=== PATIENT | female | born 1945 | race Caucasian/White ===

== ENCOUNTER 2022-11-27 09:45 | Observation (INO) ==
--- NOTE | 2022-11-27 10:37 | History & Physical Report ---
Date of Service November 27, 2022 Assessment & Plan (1) GREGORIO (dyspnea on exertion): Plan: Exertional Dyspnea. Hx Heart failure reduced ejection fraction, history bioprosthetic AVR CXR: 1. Trace bilateral pleural effusions. No evidence for pulmonary edema.2. No consolidation to suggest pneumonia. - 11/25/22: At [facility]: CXR normal. Elevated D-dimer: 1.21. High-sensitivity troponin 16. proBNP: 527. CTAPE protocol: No acute pulmonary emboli, c ardiomegaly with mild interstitial edema and small left pleural effusion. CTA Images being pushed/requested for in-house review - Patient has had intermittent chest pain in her sternum along the scar, this has occurred intermittently both at rest and with exertion but is not associated with exertion and is not correlated to her shortness of breath. She does not have this pain on admission. Admitting EKG: Sinus, nonspecific ST change. Compared to prior similar, previously paced. Metoprolol temporarily held for systolic pressure 100 High-sensitivity troponin pending Echo: EF 50%, prosthetic AV valve well-seated with normal gradient. Improved LV SF compared to prior study. No regional wall motion abnormalities High-sensitivity troponin is normal, 5.7 BNP is normal, 97 Cardiology consulted - Unclear source of dyspnea sx. No wheezing appreciated. No obvious overload. Graft well seated. HR appropriate. PFT/DLCO pending - ?Reflux dyspnea --> PPI ordered History of paroxysmal atrial fibrillation Apixaban 5 mg p.o. twice daily. Continued. Patient did not take morning dose, ordered EKG sinus on admission COPD Recently switched from Anoro to fluticasone Continue fluticasone No wheezing on admitting exam, good air movement No evidence of acute exacerbation Patient at bedside denied awareness of this diagnosis, reports she was not sure what her inhalers were for. Former tobacco use in remission No PFTs available for review Third-degree heart block with dual-chamber pacer EKG as noted above Pacer in place Interrogation ordered for review History of transitional cell carcinoma No recent symptoms On yearly surveillance cystoscopy, follows with [facility] Anxiety Continue BuSpar CKD Baseline creatinine ranging from 0.91.5 in preceding 2 months Last 1.14, 1.32 today Trend daily We will continue Entresto/spironolactone, if rising creatinine hold DVT prophylaxis: Anticoagulated on DOAC Diet: Heart healthy CODE STATUS: Full code Disposition: Medical telemetry (2) HFrEF (heart failure with reduced ejection fraction): (3) COPD (chronic obstructive pulmonary disease): (4) Hypertension: (5) Status post placement of cardiac pacemaker: (6) Bladder cancer: (7) COPD (chronic obstructive pulmonary disease): (8) S/P AVR: (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 Due to severe exertional dyspnea she was referred to the emergency department for inpatient evaluation. Susan reports she has been having shortness of breath and difficulty breathing. Noticed shortness of breath 'from day one right after the surgery.' Has good days and bad days, notes several symptom free days since then as well. Last time she was dyspnea free was last Wednesday (6 days ago). Was feeling 'fine that Wednesday, went to bed feeling fine, woke up Wednesday morning for cardiac rehab and was really having trouble breathing, but went anyway and couldn't do much while I was there.' Was recommended for ER evaluation then, but as she had similar sx before intermittently wanted to watch and wait. This past week layed on the couch and went to bed, but continued to feel poor all week. Dyspnea with any exertion and while trying to engage with rehab. Weds went back to rehab and they [place] [facility] based on dyspnea. D-dimer elevated, CTA with no evidence of PE. Initially was told they would keep her for a few days, tests looked OK and d/rashid back home. Per pt did not recieve any lasix/fluid medicine. no rales/wheezes no leg edema Anoro discontinued 11/15/2022, replaced with Flovent. Pt denies hx of asthma/COPD, has not had PFTs No chest pain at current. Intermittent chest pain not associated with SoB/exertion. OCcurs at the lower part of her scar over the sternum. Hurts at her AVR scar. Does not notice a difference with palpation. Patient was seen at [facility] 11/25/2022 for shortness of breath, exertional dyspnea, and chest pressure worsening since her valve replacement. At that visit : EKG without acute ischemic changes CXR normal Elevated D-dimer: 1.21 Creatinine 1.3 High-sensitivity troponin 16 proBNP: 527 CTAPE protocol: No acute pulmonary emboli, cardiomegaly with mild interstitial edema and small left pleural effusion. - Images being pushed/requested for in-house review Med Review w Pt in Room: Takes Eliquis. - Last medicine last night. Did not take morning meds, usually take at 9am. - As needed Albuterol. - Buspar - Fluticasone inhaler daily - Valsartan - Sprionolactone - MTP - HYdroxyzine - Gabapentin 100mg PO HS, takes for sleep, no neuropathy bu thas had a 'sensative numb feeling' which improves at night with gabapentin. Does not take 3x per day 'its too much for me.' - Lasix 40mg daily was decreased to 20mg 'a few weeks ago.' Medical History: Reviewed Medications: Reviewed Surgical History: Reviewed Allergies: Reviewed Social History: Former tobacco use without current use, no alcohol use Code Status:Full Allergies Allergy/AdvReac Type Severity Reaction Status Date / Time clindamycin Allergy Severe Hives Verified 11/16/22 11:55 cocoa butter Allergy Severe HIVES Unverified 11/16/22 11:55 acetaminophen Allergy Unknown N/V Verified 11/16/22 11:55 codeine Allergy Unknown N/V Verified 11/16/22 11:55 meperidine Allergy Unknown N/V Verified 11/16/22 11:55 morphine Allergy Unknown "OUT OF Verified 11/16/22 11:55 BODY EXPERIENCES" oxycodone Allergy Unknown N/V Verified 11/16/22 11:55 Penicillins Allergy Unknown HIVES Verified 11/16/22 11:55 Sulfa (Sulfonamide Allergy Unknown HIVES Verified 11/16/22 11:55 Antibiotics) hydrocodone AdvReac Severe NAUSEA Unverified 11/16/22 11:55 lisinopril AdvReac Mild Cough Unverified 11/16/22 11:55 Home Medications Medication Instructions Recorded Confirmed Type acetaminophen 500 mg tablet 1,000 mg PO Q8H PRN Pain 08/07/22 11/27/22 History albuterol sulfate 90 mcg/actuation 2 inh inhalation Q6H PRN Shortness 08/07/22 11/27/22 History breath activated powder inhaler Of Breath sacubitril 24 mg-valsartan 26 mg 1 tab PO BID #60 tabs 09/18/22 11/27/22 Rx tablet (Entresto) buspirone 5 mg tablet 5 mg PO DAILY 09/29/22 11/27/22 History hydroxyzine HCl 10 mg tablet 10 mg PO TID PRN itching #90 tabs 10/05/22 11/27/22 Rx apixaban 5 mg tablet (Eliquis) 5 mg PO BID #180 tabs 10/06/22 11/27/22 Rx gabapentin 100 mg capsule 100 mg PO HS 10/27/22 11/27/22 History metoprolol succinate 100 mg 100 mg PO DAILY #90 tabs 11/02/22 11/27/22 Rx tablet,extended release 24 hr furosemide 40 mg tablet 20 mg PO DAILY #45 tabs 11/06/22 11/27/22 Rx fluticasone propionate 110 2 puff inhalation BID #12 grams 11/16/22 11/27/22 Rx mcg/actuation HFA aerosol inhaler (Flovent HFA) nitroglycerin 0.4 mg sublingual 0.4 mg sublingual Q5M PRN chest 11/16/22 11/27/22 Rx tablet (Nitrostat) pain #10 tabs spironolactone 25 mg tablet 25 mg PO DAILY #30 tabs 11/20/22 11/27/22 Rx Past Med/Surg History Medical History Aortic valve insufficiency Basal cell carcinoma of skin of face Bladder cancer Breast cancer Cardiomyopathy Cervical cancer Clostridium difficile colitis Colon cancer Complete heart block Hypertension Ovarian cancer Postoperative atrial fibrillation TIA (transient ischemic attack) Surgical History (Updated 09/01/22 @ 10:25 by Justice Light MD) H/O heart valve replacement with bioprosthetic valve 07/20/2022 [facility] [place] History of appendectomy S/P carpal tunnel release Status post placement of cardiac pacemaker (07/26/22) Family History (Updated 08/17/22 @ 12:32 by Jorge Luis Liu MD) Father Liver cancer alcoholism Mother Cancer of kidney Uncle Diabetes Other Cancer Heart disease Denies family history of Deep vein thrombosis Dyslipidemia Kidney disease Breast cancer Pulmonary embolism Hypertension Social History (Updated 08/17/22 @ 12:36 by Jorge Luis Liu MD) Smoking Status: Former smoker Tobacco Type: Cigarettes Age Started Using Tobacco: 16; Age Quit Using Tobacco: 76; packs per day: 1; Second Hand Exposure: No; Hx Alcohol Use: No Hx Substance Use: No Preferred Language: Japanese Communication Ability: Effective Vulnerability Assessment Analyst Required: No Beliefs That Will Affect Care: None Current Living Situation: Spouse Feels Safe at Home: Yes Assistive Devices: Denture - Upper and Denture - Lower Review of Systems Review of Systems: All systems reviewed & are unremarkable except as noted in HPI & below Physical Exam Physical Exam: General: A&Ox3. NAD. Cooperative. HEENT: Atraumatic, normocephalic.Vision/hearing intact. Pupils equal and reactive to light Pulm: CTAB A&P. -wheezes, -rales, -rhonchi. Symmetrical chest rise. No increased work of breathing. No respiratory distress. Cardiac: RRR, +soft SM. Radial pulses intact and symmetrical. Abdominal: Nontender, nondistended, soft. BS present. Ext: Warm, Dry. Distal extremity strength intact. Sensation to soft touch in hands and feet intact. Results & Data Results & Data ([facility]) Vital Signs (Past 12 Hours) Vital Signs Temp Pulse Resp BP Pulse Ox O2 Del Method 11/27/22 09:55 36.4 C L 77 28 H 107/51 L 99 Room Air PG Care Time/CCT Total # of Minutes Spent Total Time Spent with Patient: Total time spent is greater than 50% in coordination of care (as documented) at patient's floor/unit and/or counseling patient: Coding Level of Care Code 29552 INT INP/OBS CARE 3/75MIN Diagnoses GREGORIO (dyspnea on exertion) R06.09 HFrEF (heart failure with reduced ejection fraction) I50.20 COPD (chronic obstructive pulmonary disease) J44.9 Hypertension I10 Status post placement of cardiac pacemaker Z95.0 Bladder cancer C67.9 S/P AVR Z95.2 Primary transitional cell carcinoma of bladder C67.9
--- NOTE | 2022-11-27 11:55 | Electrocardiogram Report ---
Test Reason : Blood Pressure : / mmHG Vent. Rate : 068 BPM Atrial Rate : 068 BPM P-R Int : 156 ms QRS Dur : 108 ms QT Int : 438 ms P-R-T Axes : 074 -09 073 degrees QTc Int : 465 ms Poor data quality, interpretation may be adversely affected Normal sinus rhythm Incomplete right bundle branch block Abnormal ECG When compared with ECG of 08-DEC-2019 13:15, Incomplete right bundle branch block is now Present Confirmed by Buck Martins ([id number]) on 11/27/2022 11:55:26 AM Referred By: Confirmed By:Buck Martins
--- NOTE | 2022-11-27 12:09 | XRay Report ---
XR chest 2V PA/lateral CLINICAL HISTORY: hypoxia/[place] COMPARISON STUDY: Chest CT October 12, 2019. Chest radiograph June 20, 2007. FINDINGS: Dual lead right subclavian pacer is in place. Status post median sternotomy. Possible valve prosthesis. Lung volumes are normal. Lungs are clear. There is no pneumothorax. There are trace bila teral pleural effusions. Cardiac size is normal. Mediastinal contours are normal. There is no evidenc e for pulmonary edema. IMPRESSION: 1. Trace bilateral pleural effusions. No evidence for pulmonary edema. 2. No consolidation to suggest pneumonia. ACT 112: Negative or not required by law. Electronically signed by: Chuck Rendon M.D. 11/27/2022 12:07 PM
[2022-11-27 12:26] LABS: Basophils # (auto) 0.05 K/uL (0-0.2); Basophils % (auto) 0.6 %; Eosinophils # (auto) 0.08 K/uL (0-0.50); Eosinophils % (auto) 0.9 %; Hematocrit (blood only) 40.2 % (37.0-47.0); Hemoglobin 13.2 g/dl (12.0-16.0); Immature Granulocytes # (auto) 0.02 K/uL (0.01-0.20); Immature Granulocytes % (auto) 0.2 %; Lymphocytes # (auto) 1.79 K/uL (1.2-3.4); Mean Corpuscular Hemoglobin 29.5 pg (25.0-34.0); Mean Corpuscular Hgb Conc 32.8 g/dL (32.0-36.0); Mean Corpuscular Volume 89.9 fL (80.0-100.0); Mean Platelet Volume 10.3 fL (9.4-12.4); Monocytes # (auto) 0.68 K/uL (0.11-0.59); Neutrophils # (auto) 5.89 K/uL (1.40-6.50); Neutrophils % (auto) 69.3 %; Platelet Count 265 K/uL (130-400); RDW Standard Deviation 49.5 fL (36.4-46.3); Red Blood Count 4.47 M/uL (4.20-5.40); White Blood Count 8.51 K/ul (4.8-10.8)
[2022-11-27] MEDS ORDERED: METOPROLOL SUCC 50MG EXT REL TAB PO STA (12:28)
[2022-11-27] MEDS ORDERED: VALSARTAN/SACUBITRIL 26/24MG TAB PO ONE (12:30)
[2022-11-27] MEDS ORDERED: APIXABAN 5 MG TABLET PO ONE (12:30)
[2022-11-27 12:37] LABS: Albumin Globulin Ratio 1.2 (0.9-2); BUN Creatinine Ratio 18.9 (10-20); Bilirubin,Total 0.5 mg/dl (0.2-1.0); Calcium 9.7 mg/dl (8.5-10.1); Est GFR (African American) 45.3 ml/min; Est GFR (Non-African American) 39.1 ml/min; Globulin 3.4 gm/dl (2.5-4.0); Magnesium 2.3 mg/dl (1.7-2.4); Phosphorus 3.5 mg/dl (2.5-4.9); Potassium 4.4 mmol/L (3.5-5.1); Total Protein 7.4 gm/dl (6.0-8.3)
[2022-11-27 12:41] LABS: Troponin I High Sensitivity 5.7 pg/ml (0-14)
--- NOTE | 2022-11-27 13:53 | XCELERA ---
[id number] \\[id number]
[2022-11-27 17:11] LABS: Base Excess ABG 0.4 mEq/L (-9-1.8); HCO3 ABG 23 mmol/L (19-24); Oxygen Saturation ABG 99.4 % (90-95); PCO2 ABG 30 mmHg (35-46); PO2 ABG 99 mmHg (80-95); pH ABG 7.49 (7.35-7.45)
[2022-11-27 17:12] LABS: Allen Test POS (Pos)
--- NOTE | 2022-11-27 17:26 | Cardiology Consultation ---
Date of Consultation November 27, 2022 History of Present Illness Requesting Physician: Dariel Roblero Attending Physician: Dariel Roblero Allergies Allergy/AdvReac Type Severity Reaction Status Date / Time clindamycin Allergy Severe Hives Verified 11/16/22 11:55 cocoa butter Allergy Severe HIVES Unverified 11/16/22 11:55 acetaminophen Allergy Unknown N/V Verified 11/16/22 11:55 codeine Allergy Unknown N/V Verified 11/16/22 11:55 meperidine Allergy Unknown N/V Verified 11/16/22 11:55 morphine Allergy Unknown "OUT OF Verified 11/16/22 11:55 BODY EXPERIENCES" oxycodone Allergy Unknown N/V Verified 11/16/22 11:55 Penicillins Allergy Unknown HIVES Verified 11/16/22 11:55 Sulfa (Sulfonamide Allergy Unknown HIVES Verified 11/16/22 11:55 Antibiotics) hydrocodone AdvReac Severe NAUSEA Unverified 11/16/22 11:55 lisinopril AdvReac Mild Cough Unverified 11/16/22 11:55 Home Medications Medication Instructions Recorded Confirmed Type acetaminophen 500 mg tablet 1,000 mg PO Q8H PRN Pain 08/07/22 11/27/22 History albuterol sulfate 90 mcg/actuation 2 inh inhalation Q6H PRN Shortness 08/07/22 11/27/22 History breath activated powder inhaler Of Breath sacubitril 24 mg-valsartan 26 mg 1 tab PO BID #60 tabs 09/18/22 11/27/22 Rx tablet (Entresto) buspirone 5 mg tablet 5 mg PO DAILY 09/29/22 11/27/22 History hydroxyzine HCl 10 mg tablet 10 mg PO TID PRN itching #90 tabs 10/05/22 11/27/22 Rx apixaban 5 mg tablet (Eliquis) 5 mg PO BID #180 tabs 10/06/22 11/27/22 Rx gabapentin 100 mg capsule 100 mg PO HS 10/27/22 11/27/22 History metoprolol succinate 100 mg 100 mg PO DAILY #90 tabs 11/02/22 11/27/22 Rx tablet,extended release 24 hr furosemide 40 mg tablet 20 mg PO DAILY #45 tabs 11/06/22 11/27/22 Rx fluticasone propionate 110 2 puff inhalation BID #12 grams 11/16/22 11/27/22 Rx mcg/actuation HFA aerosol inhaler (Flovent HFA) nitroglycerin 0.4 mg sublingual 0.4 mg sublingual Q5M PRN chest 11/16/22 11/27/22 Rx tablet (Nitrostat) pain #10 tabs spironolactone 25 mg tablet 25 mg PO DAILY #30 tabs 11/20/22 11/27/22 Rx Patient History Medical History Aortic valve insufficiency Basal cell carcinoma of skin of face Bladder cancer Breast cancer Cardiomyopathy Cervical cancer Clostridium difficile colitis Colon cancer Complete heart block Hypertension Ovarian cancer Postoperative atrial fibrillation TIA (transient ischemic attack) Surgical History (Updated 09/01/22 @ 10:25 by Justice Light MD) H/O heart valve replacement with bioprosthetic valve 07/20/2022 [facility] [place] History of appendectomy S/P carpal tunnel release Status post placement of cardiac pacemaker (07/26/22) Family History (Updated 08/17/22 @ 12:32 by Jorge Luis Liu MD) Father Liver cancer alcoholism Mother Cancer of kidney Uncle Diabetes Other Cancer Heart disease Denies family history of Deep vein thrombosis Dyslipidemia Kidney disease Breast cancer Pulmonary embolism Hypertension Social History (Updated 08/17/22 @ 12:36 by Jorge Luis Liu MD) Smoking Status: Former smoker Tobacco Type: Cigarettes Age Started Using Tobacco: 16; Age Quit Using Tobacco: 76; packs per day: 1; Second Hand Exposure: No; Hx Alcohol Use: No Hx Substance Use: No Preferred Language: Cook Islander Communication Ability: Effective Paramedic Required: No Beliefs That Will Affect Care: None Current Living Situation: Spouse Feels Safe at Home: Yes Assistive Devices: Denture - Upper and Denture - Lower Results & Data ([facility]) Vital Signs (Past 12 Hours) Vital Signs Temp Pulse Pulse Resp BP BP Pulse Ox 11/27/22 12:56 66 14 100/53 L 98 11/27/22 11:00 77 25 H 123/59 L 99 11/27/22 10:38 64 11/27/22 09:55 36.4 C L 77 28 H 107/51 L 99 O2 Del Method 11/27/22 12:56 Room Air 11/27/22 11:00 Room Air 11/27/22 10:38 11/27/22 09:55 Room Air PG Care Time/CCT Total # of Minutes Spent Total Time Spent with Patient: Total time spent is greater than 50% in coordination of care (as documented) at patient's floor/unit and/or counseling patient: Coding Diagnoses
[2022-11-27] MEDS ORDERED: hydrOXYzine HCl 10 MG TAB PO PRN (18:18)
[2022-11-27] MEDS ORDERED: NITROGLYCERIN SL 0.4 MG/TAB TAB SL PRN (18:18)
[2022-11-27] MEDS ORDERED: ACETAMINOPHEN 500 MG TAB PO PRN (18:18)
[2022-11-27] MEDS: ALBUT/IPRATROP 3MG/0.5MG NEB 3 ML VIAL NEB SCH ×3 (19:24→23:00)
[2022-11-27] MEDS: GABAPENTIN 100 MG CAP PO SCH (20:38)
[2022-11-27] MEDS: VALSARTAN/SACUBITRIL 26/24MG TAB PO SCH (20:38)
[2022-11-27] MEDS: APIXABAN 5 MG TABLET PO SCH (21:02)
[2022-11-28] MEDS: ALBUT/IPRATROP 3MG/0.5MG NEB 3 ML VIAL NEB SCH ×5 (04:01→19:06)
[2022-11-28 06:57] LABS: Basophils # (auto) 0.06 K/uL (0-0.2); Basophils % (auto) 0.9 %; Eosinophils # (auto) 0.08 K/uL (0-0.50); Eosinophils % (auto) 1.2 %; Hematocrit (blood only) 34.9 % (37.0-47.0); Hemoglobin 11.7 g/dl (12.0-16.0); Immature Granulocytes # (auto) 0.03 K/uL (0.01-0.20); Immature Granulocytes % (auto) 0.4 %; Lymphocytes # (auto) 1.24 K/uL (1.2-3.4); Lymphocytes % (auto) 18.3 %; Mean Corpuscular Hemoglobin 29.3 pg (25.0-34.0); Mean Corpuscular Hgb Conc 33.5 g/dL (32.0-36.0); Mean Corpuscular Volume 87.3 fL (80.0-100.0); Mean Platelet Volume 9.7 fL (9.4-12.4); Monocytes # (auto) 0.58 K/uL (0.11-0.59); Monocytes % (auto) 8.5 %; Neutrophils % (auto) 70.7 %; Platelet Count 255 K/uL (130-400); RDW Coefficient of Variation 14.9 % (11.5-14.5); RDW Standard Deviation 48.1 fL (36.4-46.3); White Blood Count 6.79 K/ul (4.8-10.8)
[2022-11-28 08:22] LABS: Potassium 4.3 mmol/L (3.5-5.1)
[2022-11-28 08:28] LABS: BUN Creatinine Ratio 20.9 (10-20); Creatinine Clr Calc Pharmacy 34.4 ml/min; Est GFR (African American) 53.5 ml/min; Est GFR (Non-African American) 46.2 ml/min
[2022-11-28] MEDS: busPIRone 5 MG TAB PO SCH (09:15)
[2022-11-28] MEDS: APIXABAN 5 MG TABLET PO SCH ×2 (09:15→21:57)
[2022-11-28] MEDS: FLUTICASONE FUROATE 200MCG 14 PUFFS/INHALER INH SCH (09:15)
[2022-11-28] MEDS: SPIRONOLACTONE 25 MG TAB PO SCH (09:15)
[2022-11-28] MEDS: PANTOprazole 40 MG TAB PO SCH (09:16)
[2022-11-28] MEDS: VALSARTAN/SACUBITRIL 26/24MG TAB PO SCH (09:17)
[2022-11-28] MEDS: METOPROLOL SUCC 25MG EXT REL TAB PO SCH (10:16)
--- NOTE | 2022-11-28 12:09 | Cardiology Consultation ---
Date of Consultation November 28, 2022 Assessment & Plan (1) Orthostatic hypotension: (2) History of aortic valve replacement with bioprosthetic valve: (3) Cardiomyopathy: (4) COPD (chronic obstructive pulmonary disease): (5) Paroxysmal atrial fibrillation: Plan Complex patient with conflicting data in the face of apparently declining left ventricular systolic function prompted aggressive intervention with diuresis and vasoactive regimen. Fortunately, her systolic function has greatly improved and it will be much less critical to aggressively afterload reduce. Continue to hold Entresto for now, once her BP recovers would consider restarting this to preserve her improved LV function. In the face of orthostasis, will markedly reduce metoprolol dosing, rather than her usual 100 mg tablet would administer metoprolol succinate 25 mg today, reassess hemodynamics tomorrow to decide on further dosing. Also, she appears euvolemic currently, would continue to hold her diuretic and place her on a weight-based regimen (if she gains more than 2 pounds in a day or more than 5 pounds in a week she could take a dose of furosemide 40 mg). She can eat a low-salt diet and would recommend ambulation later today to ensure she is not having any orthostatic symptoms, dyspnea on exertion, or other ongoing concerns. She was very pleased to hear that her heart function had dramatically improved. Further recommendations based upon clinical course overnight and hemodynamics tomorrow. History of Present Illness Reason for Consultation: Dyspnea exertion/AVR Requesting Physician: Rosie Hines MD Attending Physician: Rosie Hinse MD History of Present Illness 77-year-old woman status post bioprosthetic AVR (June 2022) for severe aortic regurgitation complicated by complete heart block (dual-chamber pacemaker June 2022), paroxysmal atrial fibrillation (apixaban), who was noted to have moderate and then severe left ventricular systolic function postoperatively (2 echocardiograms August 2022) with HFrEF requiring diuretics, seen yesterday by Dr. Light for fatigue and dyspnea, admitted for further evaluation. There was conflicting evidence for volume overload/volume depletion (see Dr. Light's note from 11/27/2022), her vasoactive medications were held and she was followed closely overnight. Fortunately, she had an uneventful night and feels much better this morning, she has not yet received any diuretic or any of her vasoactive medications. Rhythm was unremarkable (sinus in the 80-90 bpm range overnight). Fortunately, echocardiogram from yesterday showed marked improvement in left ventricular systolic function (EF increased from 20-24% up to 50%) and valve function was unremarkable. At the time my evaluation, she was comfortable at rest and had no orthostatic symptoms upon standing. Allergies Allergy/AdvReac Type Severity Reaction Status Date / Time clindamycin Allergy Severe Hives Verified 11/27/22 19:24 cocoa butter Allergy Severe HIVES Verified 11/27/22 19:24 codeine Allergy Unknown N/V Verified 11/27/22 19:24 meperidine Allergy Unknown N/V Verified 11/27/22 19:24 morphine Allergy Unknown "OUT OF Verified 11/27/22 19:24 BODY EXPERIENCES" oxycodone Allergy Unknown N/V Verified 11/27/22 19:24 Penicillins Allergy Unknown HIVES Verified 11/27/22 19:24 Sulfa (Sulfonamide Allergy Unknown HIVES Verified 11/27/22 19:24 Antibiotics) hydrocodone AdvReac Severe NAUSEA Verified 11/27/22 19:24 lisinopril AdvReac Mild Cough Verified 11/27/22 19:24 Home Medications Medication Instructions Recorded Confirmed Type acetaminophen 500 mg tablet 1,000 mg PO Q8H PRN Pain 08/07/22 11/27/22 History albuterol sulfate 90 mcg/actuation 2 inh inhalation Q6H PRN Shortness 08/07/22 11/27/22 History breath activated powder inhaler Of Breath sacubitril 24 mg-valsartan 26 mg 1 tab PO BID #60 tabs 09/18/22 11/27/22 Rx tablet (Entresto) buspirone 5 mg tablet 5 mg PO DAILY 09/29/22 11/27/22 History hydroxyzine HCl 10 mg tablet 10 mg PO TID PRN itching #90 tabs 10/05/22 11/27/22 Rx apixaban 5 mg tablet (Eliquis) 5 mg PO BID #180 tabs 10/06/22 11/27/22 Rx gabapentin 100 mg capsule 100 mg PO HS 10/27/22 11/27/22 History metoprolol succinate 100 mg 100 mg PO DAILY #90 tabs 11/02/22 11/27/22 Rx tablet,extended release 24 hr furosemide 40 mg tablet 20 mg PO DAILY #45 tabs 11/06/22 11/27/22 Rx fluticasone propionate 110 2 puff inhalation BID #12 grams 11/16/22 11/27/22 Rx mcg/actuation HFA aerosol inhaler (Flovent HFA) nitroglycerin 0.4 mg sublingual 0.4 mg sublingual Q5M PRN chest 11/16/22 11/27/22 Rx tablet (Nitrostat) pain #10 tabs spironolactone 25 mg tablet 25 mg PO DAILY #30 tabs 11/20/22 11/27/22 Rx Patient History Medical History (Updated 11/28/22 @ 12:18 by Aashish Mike MD) Aortic valve insufficiency Basal cell carcinoma of skin of face Bladder cancer Breast cancer Cardiomyopathy Cervical cancer Clostridium difficile colitis 07/20/2022 [facility] Colon cancer Complete heart block (06/2022) Hypertension Ovarian cancer Postoperative atrial fibrillation TIA (transient ischemic attack) Surgical History (Updated 11/28/22 @ 12:17 by Aashish Mike MD) H/O heart valve replacement with bioprosthetic valve 07/20/2022 [facility] History of appendectomy S/P carpal tunnel release Status post placement of cardiac pacemaker (07/26/22) Family History Father Liver cancer alcoholism Mother Cancer of kidney Uncle Diabetes Other Cancer Heart disease Denies family history of Deep vein thrombosis Dyslipidemia Kidney disease Breast cancer Pulmonary embolism Hypertension Social History Smoking Status: Former smoker Tobacco Type: Cigarettes Age Started Using Tobacco: 16; Age Quit Using Tobacco: 76; packs per day: 1; Second Hand Exposure: No; Do You Dip or Chew Tobacco: No; Tobacco Cessation Education Requested by Patient: No Hx Alcohol Use: No Hx Substance Use: No Preferred Language: Sudanese Communication Ability: Effective Carrot Tier Required: No Beliefs That Will Affect Care: None Current Living Situation: Spouse Other Information That Helps Us Care for You: No Feels Safe at Home: Yes Safety Concerns: Feels Safe At This Time Assistive Devices: Denture - Upper, Denture - Lower and Glasses Physical Exam Physical Exam: No distress. Weight unchanged overnight. BP by MD 110/60 mmHg dropping to 96/50 mmHg upon standing (no symptoms) before fairly quickly returning to baseline. Pulse 76 bpm and regular. Skin: no ecchymoses or generalized lesions. HEENT: unremarkable. Neck: Jugular venous pulse at the clavicle at 90 degrees, no carotid bruits. Lungs: Few faint crackles at the bases, generally clear. Cardiac: regular rhythm, normal S1 and intact aortic closure sound, 2/6 apical holosystolic murmur radiating to the axilla, no diastolic murmur or gallop. Abdomen: benign. Extremities: no edema, pulses intact. Neurologic: normal affect and conversation, nonfocal. Results & Data ([facility]) Vital Signs (Past 12 Hours) Vital Signs Temp Pulse Pulse Resp BP Pulse Ox O2 Del Method 11/28/22 11:37 78 16 96 Room Air 11/28/22 07:55 72 16 98 Room Air 11/28/22 07:44 81 11/28/22 07:11 98.2 F 84 18 105/68 95 Room Air 11/28/22 02:20 98.2 F 105 H 18 114/69 94 Room Air Laboratory Results Potassium 4.3, BUN 24, creatinine 1.15 (yesterday BUN 24/creatinine 1.32). BNP was 97. Diagnostic Findings As noted, echocardiogram showed appropriate valvular function with EF of 50%. Chest x-ray showed no acute process. ECG showed sinus rhythm at 68 bpm with incomplete right bundle branch block and nonspecific anterolateral ST abnormalities which are chronic. PG Care Time/CCT Total # of Minutes Spent Total Time Spent with Patient: Total time spent is greater than 50% in coordination of care (as documented) at patient's floor/unit and/or counseling patient: Coding Level of Care Code 77523 IN/OBS CONSULT LVL 4,60M Diagnoses Orthostatic hypotension I95.1 History of aortic valve replacement with bioprosthetic valve Z95.3 Cardiomyopathy I42.9 COPD (chronic obstructive pulmonary disease) J44.9 Paroxysmal atrial fibrillation I48.0
--- NOTE | 2022-11-28 19:06 | Hospitalist Progress Note ---
Date of Service November 28, 2022 Assessment & Plan (1) GREGORIO (dyspnea on exertion): Plan: Exertional Dyspnea. Hx Heart failure reduced ejection fraction, history bioprosthetic AVR CXR: 1. Trace bilateral pleural effusions. No evidence for pulmonary edema.2. No consolidation to suggest pneumonia. - [facility]25/22[facility] normal. Elevated D-dimer: 1.21. High-sensitivity troponin 16. proBNP: 527. CTAPE protocol: No acute pulmonary emboli, c ardiomegaly with mild interstitial edema and small left pleural effusion. CTA Images being pushed/requested for in-house review - Patient has had intermittent chest pain in her sternum along the scar, this has occurred intermittently both at rest and with exertion but is not associated with exertion and is not correlated to her shortness of breath. She does not have this pain on admission. Admitting EKG: Sinus, nonspecific ST change. Compared to prior similar, previously paced. Metoprolol temporarily held for systolic pressure 100 and restarted today at lower dose of 25 mg daily due to orthostasis as per cardiology recommendation High-sensitivity troponin negative x2 Echo: EF 50%, prosthetic AV valve well-seated with normal gradient. Improved LV SF compared to prior study. No regional wall motion abnormalities BNP is normal, 97 -Pulse ox is normal,ABG shows respiratory alkalosis Cardiology consulted-thinks symptoms are related to orthostasis -Holding Lasix, holding Entresto, restarting lower dose of metoprolol -Check orthostatics in the morning She is already much improved (2) Orthostatic hypotension: Plan: Reducing metoprolol as above Check orthostatics in the morning Lasix will be weight-based from now on as a as needed Likely restart Entresto tomorrow but hold for now (3) HFrEF (heart failure with reduced ejection fraction): Plan: As above (4) Hypertension: Plan: With orthostasis as noted above Holding Entresto Restart Toprol-XL at lower dose of 25 mg daily Continue spironolactone 25 mg daily (5) COPD (chronic obstructive pulmonary disease): Plan: No acute issues Continue home maintenance inhaler, albuterol as needed (6) Status post placement of cardiac pacemaker: Plan: For complete heart block s/p aortic valve replacement No acute issues (7) Paroxysmal atrial fibrillation: Plan: History of paroxysmal atrial fibrillation. In sinus rhythm here Continue apixaban 5 mg p.o. 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 She did walk up and down the hallways several times today and felt a little dyspneic with exertion at the end of the walk. No further lightheadedness with standing. Telemetry with normal sinus rhythm with rates in the 80s I discussed the case with Dr. Mike of cardiology. Physical Exam Constitutional: WD/WN, vitals as above Respiratory: normal respiratory effort; no cough Auscultation: + crackles (Left base); no rhonchi and no wheezes Cardiovascular: Rate/Rhythm: regular rate and regular rhythm Heart Sounds: + murmur (1/6 systolic murmur) Neurologic: PERRL, EOMI, accommodation nl, no face palsy, no dysarthria Psychiatric: A+Ox3, euthymic affect Results & Data Results & Data ([facility]) Vital Signs (Past 12 Hours) Vital Signs Temp Pulse Pulse Resp BP Pulse Ox O2 Del Method 11/28/22 16:01 36.7 C 74 22 116/52 L 98 Room Air 11/28/22 15:18 72 11/28/22 15:07 69 16 96 Room Air 11/28/22 12:05 36.5 C 75 18 100/65 98 Room Air 11/28/22 11:37 78 16 96 Room Air 11/28/22 07:55 72 16 98 Room Air 11/28/22 07:44 81 11/28/22 07:11 36.8 C 84 18 105/68 95 Room Air Laboratory Results CBC, troponin, BMP all reviewed PG Care Time/CCT Total # of Minutes Spent Total Time Spent with Patient: Total time spent is greater than 50% in coordination of care (as documented) at patient's floor/unit and/or counseling patient: Coding Level of Care Code 17307 SUB INP/OBS CARE 235MIN Diagnoses GREGORIO (dyspnea on exertion) R06.09 Orthostatic hypotension I95.1 HFrEF (heart failure with reduced ejection fraction) I50.20 Hypertension I10 COPD (chronic obstructive pulmonary disease) J44.9 Status post placement of cardiac pacemaker Z95.0 Paroxysmal atrial fibrillation I48.0 S/P AVR Z95.2 Primary transitional cell carcinoma of bladder C67.9 Anxiety F41.9
[2022-11-28] MEDS ORDERED: ALBUT/IPRATROP 3MG/0.5MG NEB 3 ML VIAL NEB PRN (20:38)
[2022-11-28] MEDS: GABAPENTIN 100 MG CAP PO SCH (21:56)
[2022-11-29 07:33] LABS: BUN Creatinine Ratio 22.6 (10-20); Creatinine Clr Calc Pharmacy 37.3 ml/min; Est GFR (African American) 59.1 ml/min; Magnesium 2.2 mg/dl (1.7-2.4); Potassium 4.2 mmol/L (3.5-5.1)
[2022-11-29] MEDS: SPIRONOLACTONE 25 MG TAB PO SCH (08:42)
[2022-11-29] MEDS: busPIRone 5 MG TAB PO SCH (08:42)
[2022-11-29] MEDS: METOPROLOL SUCC 25MG EXT REL TAB PO SCH (08:42)
[2022-11-29] MEDS: PANTOprazole 40 MG TAB PO SCH (08:42)
[2022-11-29] MEDS: FLUTICASONE FUROATE 200MCG 14 PUFFS/INHALER INH SCH (08:42)
[2022-11-29] MEDS: APIXABAN 5 MG TABLET PO SCH (10:07)
--- NOTE | 2022-11-29 11:40 | Cardiology Progress Note ---
Date of Service November 29, 2022 Assessment & Plan (1) Orthostatic hypotension: (2) History of aortic valve replacement with bioprosthetic valve: (3) Cardiomyopathy: (4) COPD (chronic obstructive pulmonary disease): (5) Paroxysmal atrial fibrillation: Plan She is doing very well, no symptoms whatsoever. Hemodynamics are reasonable, no orthostasis. Appears euvolemic. Change diuretic to weight-based regimen (if she gains more than 2 pounds a day or more than 5 pounds in a week she will take a dose of furosemide 40 mg). Resume low-dose Entresto (24/26 mg). Discharge on reduced dose of metoprolol succinate 25 mg daily. Okay for discharge. Follow-up in heart failure clinic with Opal Barron PA-C in 1 week, with Dr. Light in 2 to 3 weeks. Admission and Anticipated Discharge Date Admission Date: November 27, 2022 Subjective Uneventful night. Patient is doing well. No symptoms, specifically no orthostatic lightheadedness or dyspnea. Telemetry showed sinus rhythm at 60-80 bpm. No dysrhythmias. Physical Exam Physical Exam: No distress. BP by MD 110/68 mmHg, no change upon standing (no symptoms). Pulse 64 bpm and regular. Skin: no ecchymoses or generalized lesions. HEENT: unremarkable. Neck: Jugular venous pulse at the clavicle at 90 degrees, no carotid bruits. Lungs: Mildly decreased breath sounds, rare crackles at the bases, generally clear. Cardiac: regular rhythm, normal S1 and intact aortic closure sound, 2/6 apical holosystolic murmur radiating to the axilla, no diastolic murmur or gallop. Abdomen: benign. Extremities: no edema, pulses intact. Neurologic: normal affect and conversation, nonfocal. Results & Data ([facility]) Vital Signs (Past 12 Hours) Vital Signs Temp Pulse Pulse Resp BP Pulse Ox O2 Del Method 11/29/22 08:00 63 11/29/22 08:00 98.2 F 64 20 103/59 L 95 Room Air 11/29/22 03:10 97.9 F 71 17 91/56 L 93 Room Air Laboratory Results Normal electrolytes with potassium 4.2, BUN 24, creatinine 1.06 PG Care Time/CCT Total # of Minutes Spent Total Time Spent with Patient: Total time spent is greater than 50% in coordination of care (as documented) at patient's floor/unit and/or counseling patient: Coding Level of Care Code 13254 SUB INP/OBS CARE 350MIN Diagnoses Orthostatic hypotension I95.1 History of aortic valve replacement with bioprosthetic valve Z95.3 Cardiomyopathy I42.9 COPD (chronic obstructive pulmonary disease) J44.9 Paroxysmal atrial fibrillation I48.0
[2022-11-29] MEDS ORDERED: VALSARTAN/SACUBITRIL 26/24MG TAB PO SCH (12:00)
--- NOTE | 2022-11-29 12:07 | Discharge Summary ---
Date of Service November 29, 2022 Admission HPI Per Admitting Provider Susan is a 77-year-old female with past medical history of severe aortic regurg with bioprosthetic AVR placement 06/2022, dual-chamber pacemaker placement 06/2022 due to complete heart block post valve replacement, cardiomyopathy with EF improved from 08/2022 of 20-24% to 45% on most recent echo post valve replacement, history of ovarian cancer s/p right nephrectomy, breast cancer s/p lumpectomy/chemotherapy, and remote TIA who presented for a follow-up visit as outpatient cardiology. Due to severe exertional dyspnea she was referred to the emergency department for inpatient evaluation. Susan reports she has been having shortness of breath and difficulty breathing. Noticed shortness of breath 'from day one right after the surgery.' Has good days and bad days, notes several symptom free days since then as well. Last time she was dyspnea free was last Wednesday (6 days ago). Was feeling 'fine that Wednesday, went to bed feeling fine, woke up Wednesday morning for cardiac rehab and was really having trouble breathing, but went anyway and couldn't do much while I was there.' Was recommended for ER evaluation then, but as she had similar sx before intermittently wanted to watch and wait. This past week layed on the couch and went to bed, but continued to feel poor all week. Dyspnea with any exertion and while trying to engage with rehab. Weds went back to rehab and they sent her to [facility] based on dyspnea. D-dimer elevated, CTA with no evidence of PE. Initially was told they would keep her for a few days, tests looked OK and d/rashid back home. Per pt did not recieve any lasix/fluid medicine. no rales/wheezes no leg edema Anoro discontinued 11/15/2022, replaced with Flovent. Pt denies hx of asthma/COPD, has not had PFTs No chest pain at current. Intermittent chest pain not associated with SoB/exertion. OCcurs at the lower part of her scar over the sternum. Hurts at her AVR scar. Does not notice a difference with palpation. Patient was seen at [facility] 11/25/2022 for shortness of breath, exertional dyspnea, and chest pressure worsening since her valve replacement. At that visit : EKG without acute ischemic changes CXR normal Elevated D-dimer: 1.21 Creatinine 1.3 High-sensitivity troponin 16 proBNP: 527 CTAPE protocol: No acute pulmonary emboli, cardiomegaly with mild interstitial edema and small left pleural effusion. - Images being pushed/requested for in-house review Med Review w Pt in Room: Takes Eliquis. - Last medicine last night. Did not take morning meds, usually take at 9am. - As needed Albuterol. - Buspar - Fluticasone inhaler daily - Valsartan - Sprionolactone - MTP - HYdroxyzine - Gabapentin 100mg PO HS, takes for sleep, no neuropathy bu thas had a 'sensative numb feeling' which improves at night with gabapentin. Does not take 3x per day 'its too much for me.' - Lasix 40mg daily was decreased to 20mg 'a few weeks ago.' Medical History: Reviewed Medications: Reviewed Surgical History: Reviewed Allergies: Reviewed Social History: Former tobacco use without current use, no alcohol use Code Status:Full Principal Diagnosis Dyspnea on exertion, orthostasis Discharge Exam Constitutional WD/WN, vitals as above Respiratory normal respiratory effort; no cough Auscultation: no crackles, no rhonchi and no wheezes Cardiovascular Rate/Rhythm: regular rate and regular rhythm Heart Sounds: + murmur (1/6 systolic murmur) Psychiatric A+Ox3, euthymic affect Discharge Data Allergies Allergy/AdvReac Type Severity Reaction Status Date / Time clindamycin Allergy Severe Hives Verified 11/27/22 19:24 cocoa butter Allergy Severe HIVES Verified 11/27/22 19:24 codeine Allergy Unknown N/V Verified 11/27/22 19:24 meperidine Allergy Unknown N/V Verified 11/27/22 19:24 morphine Allergy Unknown "OUT OF Verified 11/27/22 19:24 BODY EXPERIENCES" oxycodone Allergy Unknown N/V Verified 11/27/22 19:24 Penicillins Allergy Unknown HIVES Verified 11/27/22 19:24 Sulfa (Sulfonamide Allergy Unknown HIVES Verified 11/27/22 19:24 Antibiotics) hydrocodone AdvReac Severe NAUSEA Verified 11/27/22 19:24 lisinopril AdvReac Mild Cough Verified 11/27/22 19:24 Consultations 11/27/22 18:18 Consult Cardiology Routine Ordered Studies ECHO Hospital Course (1) GREGORIO (dyspnea on exertion): Exertional Dyspnea. Hx Heart failure reduced ejection fraction, history bioprosthetic AVR CXR: 1. Trace bilateral pleural effusions. No evidence for pulmonary edema.2. No consolidation to suggest pneumonia. - [facility]25[facility]: CXR normal. Elevated D-dimer: 1.21. High-sensitivity troponin 16. proBNP: 527. CTAPE protocol: No acute pulmonary emboli, cardiomegaly with mild interstitial edema and small left pleural effusion. CTA Images being pushed/requested for in-house review - Patient has had intermittent chest pain in her sternum along the scar, this has occurred intermittently both at rest and with exertion but is not associated with exertion and is not correlated to her shortness of breath. She does not have this pain on admission. Admitting EKG: Sinus, nonspecific ST change. Compared to prior similar, previously paced. Metoprolol temporarily held for systolic pressure 100 and restarted today at lower dose of 25 mg daily due to orthostasis as per cardiology recommendation High-sensitivity troponin negative x2 Echo: EF 50%, prosthetic AV valve well-seated with normal gradient. Improved LV SF compared to prior study. No regional wall motion abnormalities BNP is normal, 97 -Pulse ox is normal,ABG shows respiratory alkalosis Cardiology consulted-thinks symptoms are related to orthostasis -changed Lasix to only 40mg daily prn weight gain rather than scheduled -continue aldactone -held Entresto, but orthostatics now normal and can restart this on discharge GREGORIO resolved, ambulating hallways prior to discharge without any difficulty f/u CHF clinic in 1 week and with Cardiology in 2-3 weeks (2) Orthostatic hypotension: Reducing metoprolol and made lasix prn as above as above (3) HFrEF (heart failure with reduced ejection fraction): As above (4) Hypertension: BPs normal now-med changes as above (5) COPD (chronic obstructive pulmonary disease): No acute issues Continue home maintenance inhaler, albuterol as needed (6) Status post placement of cardiac pacemaker: For complete heart block s/p aortic valve replacement No acute issues (7) Paroxysmal atrial fibrillation: History of paroxysmal atrial fibrillation. In sinus rhythm here Continue apixaban 5 mg p.o. 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: History of transitional cell carcinoma No recent symptoms On yearly surveillance cystoscopy, follows with [facility] (10) Anxiety: No acute issues Continue BuSpar Plan DVT prophylaxis-Eliquis Disposition-dc to home Total Time Total Time Spent Total Time Spent (In Minutes): 35 min Discharge Plan Discharge Items Patient Disposition: Home - Self-Care Reason For Visit: GREGORIO Discharge Diagnosis: Shortness of breath, orthostasis Condition on Discharge: Good Activity: As commented below Bathing: No limitations Exercise/Sports: Gradually increase as tolerated Non-emergency contact: Primary Care Provider and Actuarial Director Call non-emergency contact if: you have any medication questions and your symptoms worsen Follow-up/Referrals: Justice Light MD [Physician] - (Follow up in 2-3 weeks.) Jorge Luis Liu MD [Primary Care Provider] - (Follow up within 1-2 weeks.) Mary Barron PA-C [Physician Manager [employer]] - (Follow up within 1 week at the CHF clinic.) Diet: Low Sodium (2gm) Fluids: 1800ml (7 cups) Addtl Attending Provider Instructions: You were admitted with lightheadedness and shortness of breath. This is likely related to too much diuretic and dropping blood pressures with standing. Your metoprolol dose was reduced to 25mg daily and your lasix will now be taken only as needed for 2 lbs. of weight gain in 1 day. Call your Primary Care doctor if any of the following symptoms or problems start or get worse: * Shortness of breath or difficulty breathing * Wake up at night short of breath * Chest pain * Cough * Swelling of your hands, feet, or legs * More fatigued or tired with your normal activity * Palpitations - sudden fast heart beats WEIGHT * Weigh yourself every morning after using the bathroom. * Use the same scale. * Wear the same amount of clothing. * Write your weight down on a chart. * Call your Primary Care doctor if you gain more than 2-3 pounds in 1-2 days. MEDICATIONS * Use this discharge instruction sheet for medication instructions. * Take your medications at the time your doctor ordered. * Do not skip a dose of your medicines. * If you miss a dose of medicine, take it as soon as possible, but DO NOT DOUBLE A DOSE. * Read your medicine information when you get home. * Know all of the side effects of your medicine. If in doubt, ask your pharmacist * Call your Primary Care doctor's office if you have any side effects. * Be sure all of your doctors know what medicine and herbs you take (including cold, flu, and herbal medicine). Take the following with you to your follow-up doctor appointments: * Weight Chart * Medication List * List of questions Do not drink excessive alcohol, beer or wine. Pending Studies at Discharge: No Stand-Alone Forms: [facility] [employer], Smoking Cessation Medications and DC Order Prescriptions: New metoprolol succinate 25 mg Tablet Extended Release 24 Hr 25 mg PO QAM Qty: 30 0RF Continued hydroxyzine HCl 10 mg tablet 10 mg PO TID PRN (Reason: itching) Qty: 90 2RF Eliquis 5 mg tablet 5 mg PO BID Qty: 180 3RF gabapentin 100 mg capsule 100 mg PO HS spironolactone 25 mg tablet 25 mg PO DAILY Qty: 30 11RF nitroglycerin [Nitrostat] 0.4 mg tablet, sublingual 0.4 mg sublingual Q5M PRN (Reason: chest pain) Qty: 10 2RF Rx Instructions: until response; do not exceed 3 doses per episode fluticasone propionate [Flovent HFA] 110 mcg/actuation HFA aerosol inhaler 2 puff inhalation BID Qty: 12 5RF Rx Instructions: rinse mouth after usage albuterol sulfate 90 mcg/actuation aerosol powdr breath activated 2 inh inhalation Q6H PRN (Reason: Shortness Of Breath) acetaminophen 500 mg tablet 1,000 mg PO Q8H PRN (Reason: Pain) buspirone 5 mg tablet 5 mg PO DAILY Entresto 24-26 mg tablet 1 tab PO BID Qty: 60 5RF Changed furosemide 40 mg tablet 20 mg PO DAILY PRN (Reason: weight gain of 2 lbs/24 hrs) Qty: 45 3RF Discontinued metoprolol succinate 100 mg tablet extended release 24 hr 100 mg PO DAILY Qty: 90 3RF Discharge Orders: Discharge Order- CHF (Routine); Ordered 11/29/22 Ordered By: Rosie Hines Admission Data Admit Date/Time: 11/27/22 11:22 Attending Provider: Rosie Hines Admit Provider: Dariel Roblero Primary Care Provider: Jorge Luis Liu Other Providers: Justice Light Coding Level of Care Code 20951 INP/OBS DISCH >30 MIN Diagnoses GREGORIO (dyspnea on exertion) R06.09 Orthostatic hypotension I95.1 HFrEF (heart failure with reduced ejection fraction) I50.20 Hypertension I10 COPD (chronic obstructive pulmonary disease) J44.9 Status post placement of cardiac pacemaker Z95.0 Paroxysmal atrial fibrillation I48.0 S/P AVR Z95.2 Primary transitional cell carcinoma of bladder C67.9 Anxiety F41.9
== END 2022-11-29 13:07 | disposition home or self-care (01) ==
LOC: EDINP 09:45 → ED 09:45 → SUATTDRO 11:22 → 2S 21:16